=== PATIENT | male | born 1980 | race Caucasian/White ===

== ENCOUNTER 2022-07-17 15:09 | Emergency (ER) | payer OTHER, SELFPAY ==
--- NOTE | ~2022-07-17 | CT_ITS ---
EXAMINATION: CT abdomen pelvis wo con DATE: 07/17/2022 17:07 INDICATION: Right flank pain. TECHNIQUE: Computed tomography (CT) of the abdomen and pelvis was performed without intravenous contr ast. Automated exposure control and iterative reconstruction technique were employed. The dose-length product was 328.27 mGy-cm. COMPARISON: None. FINDINGS: The visualized portions of the lung bases are clear without pneumonia or pleural effusion. The heart size is normal. No pericardial effusion. There is diffuse hepatic steatosis. The gallbladde r, spleen, pancreas, adrenal glands, and right kidney are normal. There is a 3 mm stone in left kidne y. The bladder is distended. There are no dilated loops of bowel. The appendix is normal. There are n o pathologically enlarged lymph nodes. There is no free intraperitoneal fluid. There are changes of a nterior and posterior fusion procedures at L5-S1. There is moderate lumbar spondylosis. IMPRESSION: 1. 3 mm nonobstructing left kidney stone. 2. Diffuse hepatic steatosis. Reviewed, dictated and finalized at location K.
[2022-07-17 15:12] VITALS: BP 191/81; PULSE 75; RESP 16; TEMP 36.9; O2SAT 100
[2022-07-17 15:26] LABS: Basophils Absolute Auto 0.1 K/mm3 (0.0-0.1); Basophils Percent Auto 0.6 % (0.2-1.2); Eosinophils Absolute Auto 0.1 K/mm3 (0-0.3); Hematocrit 51.2 % (42.0-52.0); Hemoglobin 17.4 g/dL (14.0-18.0); Immature Granulocyte Absolute 0.03 K/mm3 (0.00-0.031); Immature Granulocyte Percent A 0.3 % (0-0.5); Lymphocytes Absolute Auto 3.25 K/mm3 (0.9-3.2); Lymphocytes Percent Auto 30.9 % (18.3-44.2); Mean Corpuscular Hemoglobin 31.8 pg (26-34); Mean Corpuscular Volume 93.4 fl (80-100); Mean Platelet Volume 9.1 fl (7.4-10.4); Monocytes Absolute Auto 0.7 K/mm3 (0.1-0.6); Monocytes Percent Auto 6.6 % (2.6-8.5); Neutrophils Absolute Auto 6.4 K/mm3 (1.3-6.7); Neutrophils Percent Auto 60.6 % (45.5-73.1); Platelet Count Result 317 k/mm3 (150-375); Red Blood Count 5.48 M/mm3 (4.6-6.20); Red Cell Distribution Width 13.6 % (11.5-14.5); White Blood Count 10.5 K/mm3 (4.5-10.0)
[2022-07-17 15:32] LABS: Alanine Aminotransferase 36 U/L (6-50); Albumin Level 4.7 g/dL (3.5-5.1); Alkaline Phosphatase 99 U/L (38-126); Anion Gap 17 mmol/L (8-16); Aspartate Amino Transferase 38 U/L (17-59); Bilirubin,Total 0.4 mg/dL (0.2-1.3); Blood Urea Nitrogen 16 mg/dL (9-20); Calcium 8.9 mg/dL (8.4-10.2); Carbon Dioxide 24 mmol/L (22-30); Chloride 98 mmol/L (98-107); Estimated CRCL calculation 114 ml/min; Estimated Glomerular Filt Rate > 60; Glucose 147 mg/dL (65-110); Potassium 4.1 mmol/L (3.4-5.0); Sodium 139 mmol/L (137-145)
--- NOTE | 2022-07-17 16:20 | ED.GENADULT ---
HPI - General Adult General Chief complaint: Urogenital-Male Stated complaint: Possible kidney stones Time Seen by Provider: 07/17/22 15:48 Source: patient and family Mode of arrival: ambulatory Limitations: no limitations History of Present Illness HPI narrative: Patient presents with right flank pain started 48 hours ago, got worse yesterday, denies any fever, chills, nausea, vomiting, urinary symptoms. History of kidney stone. Patient denies aggravating or relieving factors or radiation of pain Related Data Allergies Allergy/AdvReac Type Severity Reaction Status Date / Time No Known Allergies Allergy Verified 07/17/22 15:14 Review of Systems Review of Systems: All systems reviewed & are unremarkable except as noted in HPI and below Exam Narrative: General appearance: Well-developed, well-nourished Skin: Normal color Head: Normocephalic, nontraumatic Eyes: Clear conjunctiva ENT: Oropharynx normal, ears normal, nose normal Neck: Supple, nontender Chest and respiratory: Airway patent, no respiratory distress, no accessory muscle use Heart: Regular rate/rhythm Abdomen: Soft, moderate tenderness right flank, no organomegaly, quiet bowel sounds Vascular: Normal peripheral pulses, normal capillary refill. 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, no gross motor deficit Course Vital Signs Vital signs: Vital Signs Temperature 36.9 C 07/17/22 15:12 Pulse Rate 75 07/17/22 15:12 Respiratory Rate 16 07/17/22 15:12 Blood Pressure 191/81 H 07/17/22 15:12 Pulse Oximetry 100 07/17/22 15:12 Oxygen Delivery Room Air 07/17/22 15:12 Temperature 36.9 C 07/17/22 15:12 Pulse Rate 75 07/17/22 15:12 Respiratory Rate 16 07/17/22 15:12 Blood Pressure 191/81 H 07/17/22 15:12 Pulse Oximetry 100 07/17/22 15:12 Oxygen Delivery Room Air 07/17/22 15:12 Medical Decision Making Vital Signs Vital Signs: Vital Signs Temperature 36.9 C 07/17/22 15:12 Pulse Rate 75 07/17/22 15:12 Respiratory Rate 16 07/17/22 15:12 Blood Pressure 191/81 H 07/17/22 15:12 Pulse Oximetry 100 07/17/22 15:12 Oxygen Delivery Room Air 07/17/22 15:12 Temperature 36.9 C 07/17/22 15:12 Pulse Rate 75 07/17/22 15:12 Respiratory Rate 16 07/17/22 15:12 Blood Pressure 191/81 H 07/17/22 15:12 Pulse Oximetry 100 07/17/22 15:12 Oxygen Delivery Room Air 07/17/22 15:12 Lab Data Result diagrams: 07/17/22 15:16 07/17/22 15:16 Labs: Lab Results 07/17/22 07/17/22 07/17/22 Range/Units 15:16 15:16 16:22 WBC 10.5 H (4.5-10.0) K/mm3 RBC 5.48 (4.6-6.20) M/mm3 Hgb 17.4 (14.0-18.0) g/dL Hct 51.2 (42.0-52.0) % MCV 93.4 (80-100) fl MCH 31.8 (26-34) pg MCHC 34.0 (32-36) g/dl RDW 13.6 (11.5-14.5) % Plt Count 317 (150-375) k/mm3 MPV 9.1 (7.4-10.4) fl Immature Gran % (Auto) 0.3 (0-0.5) % Neut % (Auto) 60.6 (45.5-73.1) % Lymph % (Auto) 30.9 (18.3-44.2) % [place] % (Auto) 6.6 (2.6-8.5) % Eos % (Auto) 1.0 (0-4.4) % Baso % (Auto) 0.6 (0.2-1.2) % Lymph # (Auto) 3.25 H (0.9-3.2) K/mm3 [place] # (Auto) 0.7 H (0.1-0.6) K/mm3 Eos # (Auto) 0.1 (0-0.3) K/mm3 Baso # (Auto) 0.1 (0.0-0.1) K/mm3 Abs Immat Gran (auto) 0.03 (0.00-0.031) K/mm3 Absolute Neuts (auto) 6.4 (1.3-6.7) K/mm3 Absolute Nucleated RBC 0.0 (0.0-0.012) K/mm3 Nucleated RBC % 0.0 (0.0-0.2) % Sodium 139 (137-145) mmol/L Potassium 4.1 (3.4-5.0) mmol/L Chloride 98 (98-107) mmol/L Carbon Dioxide 24 (22-30) mmol/L Anion Gap 17
[2022-07-17 16:31] LABS: Appearance Urine Clear (Clear); Bilirubin Urine Negative (Negative); Color Urine Yellow (Yellow); Glucose Urine UA Negative (Negative); Ketones Urine Negative (Negative); Leukocyte Esterase Ur Negative LEU/UL (Negative); Nitrate Urine Negative (Negative); Protein Urine Negative (Negative); Urobilinogen Urine 0.2 mg/dL (<2.0); pH Urine 6.5 (5.0-9.0)
[2022-07-17 16:42] LABS: Add Urine Microscopic? YES; Blood Urine Trace-Intact (Negative)
[2022-07-17 16:45] LABS: WBC Urine 0-3 /hpf
[2022-07-17 16:46] LABS: Squamous Epithelial Cell Urine Few /hpf (Few)
[2022-07-17 16:47] LABS: Bacteria Urine Trace /hpf; Mucus Urine Few /lpf
[2022-07-17] MEDS: SODIUM CHLORIDE 0.9% IV 1,000 ML 999 ML (17:32)
[2022-07-17] MEDS: ONDANSETRON INJ 4 MG/2 ML VIAL IV PUSH (18:24)
[2022-07-17] MEDS: SODIUM CHLORIDE 0.9% IV 1,000 ML 999 ML IV CONT (18:24)
[2022-07-17] MEDS: HYDROmorphone HCL INJ (*CRX) 1 MG/ML SYR 0.5 MG IV PUSH (18:24)
[2022-07-17] MEDS: TAMSULOSIN HCL 0.4 MG CAPSULE PO (18:29)
== END 2022-07-17 19:41 | disposition home or self-care (01) ==
PROVIDERS: Emergency Medicine; Emergency Provider Emergency Medicine
DX: R10.9 Unspecified abdominal pain (principal); N20.0 Calculus of kidney; K76.0 Fatty (change of) liver, not elsewhere classified
CPT/HCPCS: 36415; 74176; 80053; 81001; 85025; 96361; 96374; 96375; 99284; A9270; J1170; J2405; J7030

== ENCOUNTER 2023-10-07 20:16 | Emergency (ER) | payer OTHER, SELFPAY ==
[2023-10-07 20:40] VITALS: BP 175/92; PULSE 86; RESP 20; TEMP 36; O2SAT 97
--- NOTE | 2023-10-07 23:32 | PC.NURSE ---
no answer for vs
--- NOTE | 2023-10-08 03:09 | PC.NURSE ---
no answer at triage
== END 2023-10-07 23:32 | disposition left against medical advice (07) ==
LOC: ANHED 10-08 03:13
PROVIDERS: PCP Emergency Medicine
DX: R10.9 Unspecified abdominal pain (principal)
CPT/HCPCS: 99199

== ENCOUNTER 2023-10-11 10:39 | Outpatient (CLI) | payer OTHER, SELFPAY ==
[2023-10-11 12:59] LABS: Appearance Urine Clear (Clear); Bilirubin Urine Negative (Negative); Blood Urine Negative (Negative); Color Urine Yellow (Yellow); Glucose Urine UA Negative (Negative); Ketones Urine Negative (Negative); Leukocyte Esterase Ur Negative LEU/UL (Negative); Nitrate Urine Negative (Negative); Protein Urine Negative (Negative)
[2023-10-11 13:21] LABS: Add Urine Microscopic? NO
== END 2023-10-11 10:40 | disposition home or self-care (01) ==
PROVIDERS: PCP Emergency Medicine; Visit Provider Emergency Medicine
DX: R10.9 Unspecified abdominal pain (principal)
CPT/HCPCS: 81003

== ENCOUNTER 2023-10-11 11:00 | Outpatient (CLI) | payer OTHER, SELFPAY ==
--- NOTE | ~2023-10-11 | XR_ITS ---
EXAMINATION: XR chest 2V 10/11/2023 11:11 INDICATION: Cough for 2 weeks PROCEDURE: 2 view chest COMPARISON: No prior studies for comparison. FINDINGS: The lungs are clear. The cardiomediastinal silhouette is within normal limits. There are no pleural effusions. There is no pneumothorax suspected. IMPRESSION: 1: NO ACUTE CARDIOPULMONARY DISEASE. Reviewed, dictated and finalized at location B. ENTINER
== END 2023-10-11 11:01 ==
PROVIDERS: PCP Emergency Medicine; Visit Provider Emergency Medicine
DX: R05.9 Cough, unspecified (principal)
CPT/HCPCS: 71046

== ENCOUNTER 2023-10-16 08:46 | Outpatient (CLI) | payer OTHER, SELFPAY ==
--- NOTE | ~2023-10-16 | CT_ITS ---
Non-contrast CT scan of the Abdomen and Pelvis Clinical indication: Abdominal pain Technique: 2.5 mm axial scans were obtained through the abdomen and pelvis without intravenous or or al contrast. Dose reduction technique was used on this scan by utilizing automated exposure control a nd iterative reconstruction technique. The dose-length product (DLP) was 907.46 mGy-cm. COMPARISON: 07/17/2022 Findings: Images through the lung bases reveal no abnormalities. There is no evidence of renal or ureteral calculi. The kidneys and the ureters are nondilated. There is diffuse fatty infiltration of the liver. The spleen, pancreas, gallbladder, and adrenals lluvia ear normal. There is no aortic aneurysm. There is no evidence of bowel obstruction. Normal appendix. Images through the pelvis were performed. There is no evidence of ascites or lymphadenopathy. Urinary bladder unremarkable. No pelvic mass seen. Impression: No acute abnormality. Diffuse fatty infiltration of liver. Reviewed, dictated and finalized at [facility]. EXAMINATION CLERK Impression: No acute abnormality. Diffuse fatty infiltration of liver.
== END 2023-10-16 08:47 ==
LOC: MICIMG 08:48
PROVIDERS: PCP Emergency Medicine; Visit Provider Emergency Medicine
DX: R10.9 Unspecified abdominal pain (principal); K76.0 Fatty (change of) liver, not elsewhere classified
CPT/HCPCS: 74176

== ENCOUNTER 2024-02-25 11:03 | Outpatient (CLI) | payer OTHER, SELFPAY ==
--- NOTE | ~2024-02-25 | XR_ITS ---
Lumbosacral Spine: AP and lateral views Clinical History: Pain Findings: The normal lordotic curve is maintained. There is anterior and posterior fusion extending f rom L5 to S1, with interbody fusion device present. There is mild to moderate degenerative disc narro wing at L4-L5. Remaining disc spaces are preserved. No fracture or subluxation evident. The sacroilia c joints are normally outlined. Impression: Orthopedic fusion at L5-S1, as detailed above. Mild to moderate degenerative disc narrowing at L4-L5. Reviewed, dictated and finalized at location M. Impression: Orthopedic fusion at L5-S1, as detailed above. Mild to moderate degenerative disc narrowing at L4-L5.
== END 2024-02-25 11:04 ==
PROVIDERS: PCP Emergency Medicine; Visit Provider Emergency Medicine
DX: M51.36 Other intervertebral disc degeneration, lumbar region (principal); Z98.1 Arthrodesis status
CPT/HCPCS: 72100

== ENCOUNTER 2024-10-03 10:33 | Outpatient (CLI) | payer OTHER, SELFPAY ==
--- NOTE | 2024-10-03 10:44 | ECG_ITS ---
Test Date: 2024-10-03 10:56:34 Measurements Intervals [place] Rate: 82 P: 47 LA: 148 QRS: -1 QRSD: 88 T: 44 QT: 353 QTc: 414 Interpretive Statements SINUS RHYTHM EARLY PRECORDIAL R/S TRANSITION BORDERLINE ECG No previous ECG available for comparison Electronically Signed On 10-03-2024 15:46:46 REMOTE RUBY ON RAILS DEVELOPER by Simón Phillips D.O.
== END 2024-10-03 10:34 | disposition home or self-care (01) ==
LOC: ANHCARD 10:35
PROVIDERS: PCP Emergency Medicine; Visit Provider Surgery
DX: Z01.818 Encounter for other preprocedural examination (principal); F17.210 Nicotine dependence, cigarettes, uncomplicated
CPT/HCPCS: 93005

== ENCOUNTER 2024-10-07 00:55 | Day surgery (SDC) | payer OTHER, SELFPAY ==
[2024-10-01 09:22] VITALS: BMI 34.2
--- NOTE | 2024-10-01 09:29 | PC.NURSE ---
Report to the Outpatient Waiting Room, entrance under the green pavilion located off [facility], at time _0630_ on date _[id number]_. Planned Procedure Time: _0830_.? Time changes happen often and if your time is changed the preop area will call you the afternoon before. - You and your visitor will be asked to self-screen and do not enter if you have any COVID symptoms. Please call surgeon if you need to reschedule. - A mask is optional within the hospital at this time. Patients may have clear liquids (water, carbonated beverages, clear teas, apple juice) until 3 hours prior to surgery with a maximum of 20 ounces. - No food from midnight until time of surgery and no smoking. This includes no chewing gum, candy or mints. Take only the following medications with a SIP of water on the morning of surgery: ___None DO NOT STOP ANY OF YOUR OTHER PRESCRIPTION MEDICATIONS PRIOR TO SURGERY EXCEPT THE FOLLOWING Medications to discontinue per physician ____None___ Please no make-up, nail slovak, hairspray, perfume, deodorant, or body powder the day of surgery.? No jewelry (including any body piercings) or valuables the day of surgery, leave them at home.? Please take a shower or bath the night before, or the morning of, surgery with an antibacterial soap.? Wear comfortable, loose fitting clothing.? - Jewelry must be removed prior to entering the operating room.? Rings and piercings that are not removed may be cut off. - The hospital will not accept responsibility for valuables.? - Please leave all valuables, including medications, at home the day of surgery. If you are going home after surgery, a licensed security patrol driver must drive you home.? - NO public transportation without another adult if you receive anesthesia. - We recommend that an adult stay with you for 24 hours following discharge. - We also recommend that you do not drive, make important decision, drink alcoholic beverages, or take any drugs that were not prescribed by your health care provider for at least 24 hours after your discharge time. Follow any additional instructions given to you from your surgeon. Telephone instructions given to _Satnam__and asked if any additional questions and then verbalized understanding. Patient advised to call surgeon office or pre surgery nurse liaison [phone] if any additional questions.
--- NOTE | 2024-10-06 11:42 | PM.SD2 ---
Same Day Admit/Disch: HPI History of Present Illness Chief complaint: skin cysts of neck Narrative: Satnam Haile is a 43 year old male smoker who I saw initially in January of this year for skin cysts on each side of his neck. He initially held off on proceeding but the cyst seemed to be getting larger. He returned to the office in August. He was noted to have a 3.5 cm skin cyst just posterior to the mastoid process on the left side. The right side had a 4.3 cm skin cyst just anterior to the sternocleidomastoid below the mandible. After discussion in the office, he is taken to surgery now for excision of both of these cysts. [facility] Past Medical History Medical History (Updated 10/07/24 @ 10:03 by Marcin Connors MD) Hyperlipidemia Surgical History Surgical History (Updated 10/07/24 @ 08:06 by Wili Eaton DO) History of lumbar spinal fusion Family History Family History Mother Breast cancer Other Cerebrovascular accident Diabetes mellitus Social History Social History Smoking packs per day: 1 Smoking cigarettes per day: 20.0 Years smoked: 23 Smoking pack-years: 23.00 Smoking status: Current every day smoker Tobacco type: cigarettes Alcohol intake: current Alcohol use details: rarely Living arrangements: with family Spiritual care concerns: No Same Day Admit/Disch: Med Pre-admit Medications Home Medications Medication Instructions Recorded Confirmed Type ketorolac 10 mg tablet 10 mg PO Q6H 4 days #10 tabs 10/07/24 Rx oxycodone-acetaminophen 5 mg-325 0.5 - 1 tablet PO Q6H PRN pain #7 10/07/24 Rx mg tablet tabs Review of Systems Review of Systems All systems reviewed & are unremarkable except as noted in HPI and below (HPI) Exam Const: General: comfortable, no acute distress, alert and awake HENMT: Head: normocephalic and atraumatic Mouth: Yes Normal oral and palatal mucosa present Eyes: Conjunctivae: conjunctivae normal Pupils: Equal, round and reactive pupils present EOM: EOMs intact bilaterally Neck: Neck: no lymphadenopathy, trachea midline, supple and nontender Other: Right sided 4.3 cm subcutaneous nodule consistent with skin cyst anterior to the sternocleidomastoid and below the mandible. Left sided 3.5 cm subcutaneous nodule suggestive of the skin cyst posterior to the mastoid and below the scalp line. Resp: Effort & Inspection: normal respiratory effort Auscultation: clear to auscultation bilaterally Cardio: Rate: regular rate Rhythm: regular rhythm Heart sounds: no gallops, no murmurs and no rubs GI: Inspection: non-distended GI Palp: Yes Soft to palpation, No Tenderness to palpation present (GI), No Hepatomegaly present and No Splenomegaly present Skin: Lesions: no lesions Rashes: no rashes Neuro: General: no focal motor deficits and CN's II-XI intact bilaterally Cranial nerves: Yes Equal, round and reactive pupils present, Yes Bilaterally intact EOM present, Yes facial symmetry and Yes Midline tongue present Speech: normal speech Motor exam (neuro): 5/5 motor strength present throughout and Motor abnormalities not present Extrem: General: no clubbing, cyanosis or edema and edema Psych: Affect: normal affect Thought process: Normal thought process present Insight: Good insight present (Psych) DS: Summary Time Spent with Patient Time attestation: Total time spent providing and/or coordinating discharge services: DS: Admitting Diagnosis Discharge Date 10/07/2024 Admitting Diagnosis 4.3 cm subcutaneous nodule of the right neck and 3.5 cm subcutaneous nodule of the posterior left neck. Both appear to be skin cyst. Plan is to proceed with excision of each cyst. The procedure, risks, benefits, and alternatives have been discussed. All questions were answered. Patient understands and agrees to go ahead. Long-term smoker-increases risk of postoperative infection. DS: Discharge Diagnosis Discharge Diagnosis (1) Cyst of neck: Status: Chronic Assessment and Plan: Skin cyst of the posterolateral right and left neck, 2 skin cyst, or excised in the operating room 10/07/[address] Connors Discharge Plan Discharge Patient Disposition: Home, Self-Care Discharge Instructions: 1. May shower the day after surgery over incision. 2. Call office for: -Wound increasingly painful or bleeding -Vomiting -Fever of greater than 101 degrees 3. Expect some blood on dressing or on skin. 4. If no bowel movement for three days, take 1 oz. (30 ml) Milk of Magnesia; if no results, take Fleets enema. 5. No heavy lifting > 15-20 pounds for 2 weeks. 6. No driving for 2 days or while taking narcotic pain medications. 7. Wash over the incisions with soap and water when showering or bathing. Tried to lay around the house with only mild activity today and tomorrow. 8. Up walking 10-30 minutes three times per day. 9. Resume previous home medications. 10. Follow-up 10-14 days in office for wound check or as previously scheduled. 11. Oral pain medications prescription to be sent home with patient. 12. NUTRITION: Start out by drinking fluids and increase your diet as tolerated. If you experience nausea, try dry toast, crackers, and 7-UP. If nausea or vomiting persists, contact your surgeon?s office. Stand Alone Forms: General Discharge Instructions Follow-up/Referrals: Marcin Connors MD [Physician] - 2 Weeks (Call for appointment if you do not already have a follow-up appointment) Discharge Medications: New ketorolac 10 mg tablet 10 mg PO Q6H 4 Days Qty: 10 0RF oxycodone-acetaminophen 5-325 mg tablet 0.5 - 1 tablet PO Q6H PRN (Reason: pain) Qty: 7 0RF
[2024-10-07] VITALS (9 sets, daily range): BP systolic 91–140; BP diastolic 47–83; PULSE 66–81; RESP 18–19; TEMP 36.6–36.8; O2SAT 95–99; BMI 33.9
--- NOTE | 2024-10-07 08:02 | P.PNAN_ITS ---
Anes - Initial Pre Proc Eval Procedure: Operation Date: 10/07/24 08:30 Proposed Procedures p Excision Skin Cysts of Neck - Marcin Connors MD Date/Time: 10/07/24 08:02 Surgeon: Marcin Connors MD Pre Op Diagnosis: skin cysts of neck Patient Data Age: 43 Gender: M Height: 1.69 m Weight: 96.7 kg Last Vital Signs Temp 36.8 C 10/07/24 06:20 Pulse 75 10/07/24 06:20 Resp 18 10/07/24 06:20 BP 140/83 10/07/24 06:20 Pulse Ox 96 10/07/24 06:20 O2 Del Method Room Air 10/07/24 06:20 Allergies Allergy/AdvReac Type Severity Reaction Status Date / Time No Known Allergies Allergy Verified 10/07/24 06:46 Home Medications Medication Instructions Recorded Confirmed Type No Home Medications 09/06/24 10/07/24 History Patient hx anesthesia problems: none Family hx anesthesia problems: none Results Review: All pre-operative results and documents have been reviewed as part of the pre- operative evaluation. PMFSH Past Medical History Medical History (Updated 10/07/24 @ 08:07 by Wili Eaton DO) Hyperlipidemia Surgical History Surgical History (Updated 10/07/24 @ 08:06 by Wili Eaton DO) History of lumbar spinal fusion Family History Family History Mother Breast cancer Other Cerebrovascular accident Diabetes mellitus Social History Social History Smoking packs per day: 1 Smoking cigarettes per day: 20.0 Years smoked: 23 Smoking pack-years: 23.00 Smoking status: Current every day smoker Tobacco type: cigarettes Alcohol intake: current Alcohol use details: rarely Living arrangements: with family Spiritual care concerns: No Anes - Eval Final PreProcedure Day of Procedure 10/07/24 08:02 Patient weight: obese Heart: regular rate and rhythm Lungs: clear to auscultation Airway: Mallampati scale class II and special considerations poor dentition Neurological: alert and oriented Last oral intake: >/= 8 hours ASA classification: III Emergent: no Anesthetic plan: proceed Anesthesia type and monitoring: general LMA and standard monitoring Results Review: All pre-operative results and documents have been reviewed as part of the pre- operative evaluation. Informed Consent: The patient's anesthetic plan and its attendant risks and benefits were discussed with the patient/family/POA. Questions were solicited and answers provided to the satisfaction of the patient/family/POA.
--- NOTE | 2024-10-07 08:16 | WPDHPUPDATE1 ---
History and Physical Update Update Date/Time: 10/07/24 08:16 History and Physical has been reviewed, including an updated exam of the patient. There are NO changes in the patient's condition. Risks, benefits, and alternatives have been discussed and questions answered. Patient agrees to proceed with procedure.
[2024-10-07] MEDS: ceFAZolin 2 GM/D5W 50 ML 2 GM/50 ML BAG IVPB (08:25)
[2024-10-07] MEDS: BUPIVACAINE/EPINEPHRINE 0.5% 50 ML VIAL 40 ML INFILTRATE (08:51)
--- NOTE | 2024-10-07 09:53 | P.OP_ITS ---
Procedure Note - Detailed Date of Procedure 10/07/24 Pre-op Diagnosis skin cysts of neck (2) Post-op Diagnosis Same Procedure Performed Excision left neck 3 cm skin cyst with no margin, 3 cm excision, with 7 cm layered closure. Excision 4 cm skin cyst right neck with 2 mm margins, 4.4 cm excision, with 9 cm layered closure Surgeon Marcin Connors MD Dip Lube Operator [facility] Anesthesia General and Local Indications Patient has enlarging skin cysts of the posterolateral neck on both the right and left sides. The right-sided cyst is slightly larger than the left. There also tender sometimes. He is taken to surgery now for excision of both the cyst. Findings Appeared to be skin cyst with little or no inflammatory response. Description of Procedure The patient was checked in the preoperative holding area. The area of the 2 cysts was marked. The planned transversely oriented ellipse for the excision was marked on the skin for each cyst. Since each cyst was posterolateral, plan was to placed the patient in prone position for excision. He was taken to the operating room and induced into general anesthesia. He was then placed in a prone position with the neck in a neutral position. The posterolateral neck was prepped and draped on each side such that the anticipated excision sites were both visible. We infiltrated local anesthetic using 0.5% Marcaine with epinephrine into the area of the planned excision and in the deeper tissues for both the right and the left cyst. I then started with the left-sided cyst. A transversely oriented ellipse of skin was incised that included the cyst in its center. We carefully dissected into the subcutaneous and then dissected from each and towards the cyst. In the area of the cyst, the skin and subcutaneous was carefully dissected away from the cyst itself. In 1 area we were directly on the cyst and it was dissected away without entry. There was no margin of excision on this cyst. We continued this dissection until the cyst was entirely removed from the neck. Cautery was then used for hemostasis. The cyst was measured and its largest dimension was 3 cm. The resulting wound was measured and was 7 cm. Once hemostasis was adequate, the wound was closed with a deep layer of 3-0 Vicryl interrupted suture. The skin was loosely approximated with subcuticular interrupted 4-0 Vicryl suture. The skin was closed finally with a running 4-0 Monocryl skin suture. The wound was quarantined with a towel over it. We then went to the right side of the patient's neck. The markings were still present for the planned elliptical excision and local had already been infiltrated. Incision was made and the transversely oriented ellipse was created. In similar fashion we started from both the ends in proceeded towards the cyst. In the area of the cyst we carefully excised around the cyst trying to take 2 mm margin circumferentially. The cystic self was never seen. We continued the dissection and eventually excised the entire cyst with the overlying skin. The cyst itself was measured and its longest dimension was 4 cm. The wound was measured and was 9 cm in length. A 2 mm margin had been taken around the cyst making this a 4.4 cm excision. Once the wound was adequately hemostatic with the cautery, the deep layer of subcutaneous was closed with interrupted 3-0 Vicryl suture. Subcuticular interrupted 4-0 Vicryl skin stitches were then placed. Finally a running 4-0 Monocryl skin suture was placed. Both wounds were dressed with Exofin surgical adhesive. The patient was then returned to a supine position, awakened and extubated. He was taken to recovery in good condition. Sponge needle counts were correct x2. Estimated Blood Loss -50 Drains No Packing No Pathology Yes (Skin cyst left neck, skin cyst right neck) Complications None Condition Stable Disposition PACU [facility] Billing Surgery - Charge Forward: Surgery Billing (Excision 3 cm skin cyst of the left neck with no margin, 3 cm excision, 7 cm layered closure. Excision 4 cm skin cyst of the right neck with 2 mm margins, 4.4 cm excision, 9 cm layered closure.)
[2024-10-07] MEDS: LACTATED RINGERS 1,000 ML 30 ML IV CONT ×2 (09:56)
== END 2024-10-07 11:24 | disposition home or self-care (01) ==
PROVIDERS: PCP Emergency Medicine; Visit Provider Surgery
PROC: (CPT 11423; principal; 2024-10-07 08:30)
DX: L72.0 Epidermal cyst (principal); F17.210 Nicotine dependence, cigarettes, uncomplicated; E66.9 Obesity, unspecified; Z68.33 Body mass index [BMI] 33.0-33.9, adult
CPT/HCPCS: 11423; 11426; 12045; 88305; 93005; J0690; J2250; J3010; J7120